=== PATIENT | female | born 1950 | race African-American/Black ===

== ENCOUNTER 2016-08-11 07:59 | Day surgery (SDC) | payer OTHER ==
[2016-08-10 15:02] VITALS: BMI 34.4
[2016-08-11] MEDS ORDERED: PROPOFOL 20 ML ONE ×2 (08:51→08:52)
[2016-08-11] MEDS ORDERED: LIDOCAINE HCL/PF 1% SDV 5ML VIAL ONE (08:51)
[2016-08-11 10:02] VITALS: TEMP 97.9
[2016-08-11 11:15] VITALS: BP 110/68; PULSE 78
--- NOTE | 2016-08-12 13:29 | PATH ---
Surgical Pathology Report Patient Name: [facility]. Rec. #: [id number] /Age/Gender: 1950 (Age: 66) / F Account: [id number] Location: [facility]-ENDOSCOPY Taken: 08/11/2016 Received: 08/11/2016 Reported: 08/12/2016 Physicians: Brad Figueroa D.O. Specimen(s) Received DISTAL TRANSVERSE COLON POLYP HOT SNARE Clinical History Screening Final Diagnosis COLON, DISTAL TRANSVERSE POLYP, POLYPECTOMY: HYPERPLASTIC POLYP. Electronically Signed Rashad Cerna M.D. Gross Description Received in formalin, labeled "polyp distal transverse colon" is a reese, irregular portion of soft tissue measuring 0.5 cm in greatest dimension. The specimen is submitted in toto in one cassette. 08/11/201608/11/2016
== END 2016-08-11 11:00 | disposition home or self-care (01) ==
LOC: JASU-ENDO 07:59
PROVIDERS: ATTEND Internal Medicine Gastroenterology
PROC: 0DBL8ZX Excision of Transverse Colon, Via Natural or Artificial Opening Endoscopic, Diagnostic (ICD-10-PCS; principal; 2016-08-11 09:00)
DX: Z12.11 Encounter for screening for malignant neoplasm of colon (principal); D12.3 Benign neoplasm of transverse colon; K57.30 Diverticulosis of large intestine without perforation or abscess without bleeding; K63.89 Other specified diseases of intestine; K64.8 Other hemorrhoids
CPT/HCPCS: 88305-TC

== ENCOUNTER 2024-02-02 12:09 | Inpatient (IN) | payer OTHER ==
[2024-02-02 12:20] VITALS: BMI 26.5
[2024-02-02] MEDS ORDERED: ACETAMINOPHEN 1000 MG/100 ML BAG IVPB ONE (13:20)
[2024-02-02] MEDS ORDERED: LACTATED RINGERS SOLUTION 1000 ML INFUS.BAG IV ONE (13:20)
[2024-02-02] MEDS ORDERED: ACETAMINOPHEN INJECTION 100 ML ONE (13:50)
[2024-02-02 14:25] LABS: BASO % 0.5 % (0-2.0); EOS % 0.2 % (0-4.5); HEMATOCRIT 23.3 % (32.4-45.2); HEMOGLOBIN 7.4 GM/dL (10.7-15.3); LYMPH % 6.8 % (8-40); MCH 22.7 pg (25.7-33.7); MCHC 31.6 g/dl (32.0-36.0); MEAN CELL VOLUME 71.8 fl (80-96); MEAN PLT VOLUME 8.1 fl (7.5-11.1); MONO % 2.9 % (3.8-10.2); NEUT % 89.6 % (42.8-82.8); PLATELET COUNT 342 10^3/uL (134-434); RBC 3.24 M/mm3 (3.60-5.2); RDW 21.2 % (11.6-15.6); WHITE BLOOD COUNT 5.1 K/mm3 (4.0-10.0)
[2024-02-02 14:36] LABS: INR 0.93 (0.83-1.09); PROTHROMBIN TIME (PATIENT) 10.5 SEC (9.7-13.0)
[2024-02-02 14:38] LABS: POTASSIUM 5.1 mmol/L (3.5-5.1)
[2024-02-02 14:39] LABS: ACTIVATED PTT 20.7 SECONDS (25.2-36.5)
[2024-02-02 14:41] LABS: ALBUMIN 4.1 g/dl (3.4-5.0); BLOOD UREA NITROGEN 30.8 mg/dL (7-18); MAGNESIUM 1.8 mg/dL (1.8-2.4)
[2024-02-02 14:44] LABS: CREATININE 1.2 mg/dL (0.55-1.3)
[2024-02-02 14:46] LABS: BILIRUBIN,TOTAL 1.4 mg/dL (0.2-1); TOT PROT 7.8 g/dl (6.4-8.2)
[2024-02-02 14:54] LABS: EPI CELLS >36 /uL (0-25.1); HYALINE CASTS 0 /uL (0-3.1); URINE APPEARANCE CLEAR; URINE BACTERIA 75 /uL (0-1359); URINE BILIRUBIN NEGATIVE (NEGATIVE); URINE COLOR YELLOW; URINE GLUCOSE (UA) NEGATIVE (NEGATIVE); URINE KETONE NEGATIVE (NEGATIVE); URINE LEUK ESTERASE 1+ (NEGATIVE); URINE NITRITE NEGATIVE (NEGATIVE); URINE PROTEIN NEGATIVE (NEGATIVE); URINE RBC 20 /uL (0-23.9); URINE WBC 11 /uL (0-25.8)
[2024-02-02 15:01] LABS: ANISOCYTOSIS 2+; MACROCYTOSIS 1+; OVALOCYTE 1+; TARGET CELLS 1+; TEAR DROP CELLS 1+
[2024-02-02 15:35] LABS: HIV INTERPRETATION NEGATIVE (NEGATIVE)
[2024-02-02] MEDS: SODIUM CHLORIDE 0.9% 1000 ML INFUS.BAG IV ONE (18:28)
[2024-02-02 18:31] LABS: HEMATOCRIT 20.3 % (32.4-45.2); MCH 22.2 pg (25.7-33.7); MCHC 31.3 g/dl (32.0-36.0); MEAN CELL VOLUME 70.9 fl (80-96); MEAN PLT VOLUME 7.1 fl (7.5-11.1); PLATELET COUNT 306 10^3/uL (134-434); RBC 2.86 M/mm3 (3.60-5.2); RDW 20.6 % (11.6-15.6); WHITE BLOOD COUNT 4.5 K/mm3 (4.0-10.0)
[2024-02-02 18:33] LABS: HEMOGLOBIN 6.4 GM/dL (10.7-15.3)
[2024-02-02] MEDS ORDERED: LABETALOL HCL 20 MG/4 ML VIAL ONE (20:15)
[2024-02-02] MEDS: LABETALOL HCL 5 MG/1 ML (100MG/20 ML VIAL) IVPUSH ONE (20:36)
[2024-02-02] MEDS: LOSARTAN 50MG/HCTZ 12.5MG 1 TAB PO ONE (20:45)
[2024-02-02] MEDS ORDERED: PANTOPRAZOLE SODIUM 40 MG VIAL ONE (21:00)
[2024-02-02] MEDS: PANTOPRAZOLE SODIUM 40 MG VIAL IVPUSH ONE (21:09)
[2024-02-03 08:10] LABS: BASO % 1.2 % (0-2.0); EOS % 2.1 % (0-4.5); HEMATOCRIT 24.9 % (32.4-45.2); HEMOGLOBIN 8.1 GM/dL (10.7-15.3); LYMPH % 35.1 % (8-40); MCH 24.3 pg (25.7-33.7); MCHC 32.4 g/dl (32.0-36.0); MEAN PLT VOLUME 8.1 fl (7.5-11.1); MONO % 5.7 % (3.8-10.2); NEUT % 55.9 % (42.8-82.8); PLATELET COUNT 262 10^3/uL (134-434); RBC 3.32 M/mm3 (3.60-5.2); RDW 21.3 % (11.6-15.6)
[2024-02-03 08:29] LABS: POTASSIUM 4.2 mmol/L (3.5-5.1)
[2024-02-03 08:34] LABS: BLOOD UREA NITROGEN 22.1 mg/dL (7-18); CALCIUM 9.2 mg/dL (8.5-10.1)
[2024-02-03] MEDS: FOLIC ACID 1 MG TABLET (FP) PO SCH (09:13)
[2024-02-03] MEDS: CHOLECALCIFEROL (VIT D3) 1,000 UNIT (25 MCG) TABLET PO SCH (09:13)
[2024-02-03] MEDS: ATORVASTATIN CA 10 MG TABLET (FP) PO SCH (21:36)
[2024-02-04 08:38] LABS: BASO % 0.9 % (0-2.0); EOS % 3.9 % (0-4.5); HEMATOCRIT 25.3 % (32.4-45.2); LYMPH % 29.8 % (8-40); MCH 23.9 pg (25.7-33.7); MCHC 31.6 g/dl (32.0-36.0); MEAN CELL VOLUME 75.7 fl (80-96); MONO % 7.8 % (3.8-10.2); NEUT % 57.6 % (42.8-82.8); PLATELET COUNT 230 10^3/uL (134-434); RBC 3.34 M/mm3 (3.60-5.2); RDW 22.3 % (11.6-15.6); RETICULOCYTES 0.82 % (0.5-1.5); WHITE BLOOD COUNT 4.3 K/mm3 (4.0-10.0)
[2024-02-04 08:51] LABS: CHLORIDE 111 mmol/L (98-107); SODIUM 142 mmol/L (136-145)
[2024-02-04 08:54] LABS: ALBUMIN 3.4 g/dl (3.4-5.0); ANION GAP 7 mmol/L (4-13); BLOOD UREA NITROGEN 15.8 mg/dL (7-18); CO2 24 mmol/L (21-32)
[2024-02-04 08:55] LABS: GLUCOSE,RANDOM 93 mg/dL (74-106)
[2024-02-04 08:57] LABS: IRON SERUM 47 ug/dL (50-175); SGOT/AST 43 U/L (15-37); SGPT/ALT 23 U/L (13-61)
[2024-02-04 08:58] LABS: BILIRUBIN,TOTAL 1.4 mg/dL (0.2-1); TOTAL IRON BINDING CAPACITY 246 ug/dL (250-450)
[2024-02-04 08:59] LABS: ALK PHOS 97 U/L (45-117); TOT PROT 6.6 g/dl (6.4-8.2)
[2024-02-04 09:13] LABS: LDH 436 U/L (84-246)
[2024-02-04] MEDS: PANTOPRAZOLE 40 MG TABLET PO SCH (09:18)
[2024-02-04] MEDS: PATIENT'S OWN MEDICATION (NON-FORMULARY) (Olmesartan/Hydrochlorothiazide [Benicar Hct 40-2 PO SCH (14:25)
[2024-02-04] MEDS: LIDOCAINE 5% TOPICAL PATCH TP SCH (15:12)
[2024-02-04 15:41] LABS: BILIRUBIN,DIRECT 0.4 mg/dL (0.0-0.2)
[2024-02-04] MEDS: ATORVASTATIN CA 10 MG TABLET (FP) PO SCH (21:36)
[2024-02-04] MEDS: LIDOCAINE PATCH REMOVAL MC SCH (21:37)
[2024-02-04] MEDS ORDERED: LIDOCAINE PATCH REMOVAL MC SCH (22:00)
[2024-02-05 08:55] LABS: BASO % 0.3 % (0-2.0); EOS % 4.1 % (0-4.5); HEMATOCRIT 22.5 % (32.4-45.2); HEMOGLOBIN 7.1 GM/dL (10.7-15.3); LYMPH % 22.8 % (8-40); MCH 23.5 pg (25.7-33.7); MCHC 31.7 g/dl (32.0-36.0); MEAN PLT VOLUME 8.2 fl (7.5-11.1); MONO % 6.3 % (3.8-10.2); NEUT % 66.5 % (42.8-82.8); PLATELET COUNT 207 10^3/uL (134-434); RBC 3.03 M/mm3 (3.60-5.2); RDW 22.9 % (11.6-15.6); WHITE BLOOD COUNT 4.6 K/mm3 (4.0-10.0)
[2024-02-05 09:11] LABS: POTASSIUM 3.7 mmol/L (3.5-5.1)
[2024-02-05 09:25] LABS: CALCIUM 8.8 mg/dL (8.5-10.1)
[2024-02-05 09:27] LABS: ALBUMIN 2.9 g/dl (3.4-5.0); BLOOD UREA NITROGEN 17.3 mg/dL (7-18)
[2024-02-05 09:29] LABS: CREATININE 0.8 mg/dL (0.55-1.3)
[2024-02-05 09:31] LABS: BILIRUBIN,TOTAL 1.1 mg/dL (0.2-1); TOT PROT 5.7 g/dl (6.4-8.2)
[2024-02-05] MEDS: PANTOPRAZOLE 40 MG TABLET PO SCH (10:17)
[2024-02-05] MEDS: ZINC SULFATE 220 MG CAPSULE (FP) PO SCH (10:17)
[2024-02-05] MEDS: CHOLECALCIFEROL (VIT D3) 1,000 UNIT (25 MCG) TABLET PO SCH (10:17)
[2024-02-05] MEDS: MULTIVITAMINS (DAILY MVI) TABLET (FP) PO SCH (10:17)
[2024-02-05] MEDS: ASCORBIC ACID 250 MG TABLET (FP) PO SCH (10:17)
[2024-02-05] MEDS: FOLIC ACID 1 MG TABLET (FP) PO SCH (10:18)
[2024-02-05] MEDS: LIDOCAINE 5% TOPICAL PATCH TP SCH (19:06)
[2024-02-06 09:24] LABS: BASO % 0.3 % (0-2.0); EOS % 2.5 % (0-4.5); HEMATOCRIT 23.1 % (32.4-45.2); HEMOGLOBIN 7.4 GM/dL (10.7-15.3); MCH 23.9 pg (25.7-33.7); MCHC 32.1 g/dl (32.0-36.0); MEAN CELL VOLUME 74.6 fl (80-96); MONO % 12.2 % (3.8-10.2); PLATELET COUNT 191 10^3/uL (134-434); RBC 3.09 M/mm3 (3.60-5.2); RDW 23.3 % (11.6-15.6); WHITE BLOOD COUNT 5.7 K/mm3 (4.0-10.0)
[2024-02-06 09:29] LABS: POTASSIUM 3.9 mmol/L (3.5-5.1)
[2024-02-06 09:33] LABS: ALBUMIN 2.9 g/dl (3.4-5.0); BLOOD UREA NITROGEN 18.7 mg/dL (7-18)
[2024-02-06 09:35] LABS: CREATININE 0.8 mg/dL (0.55-1.3)
[2024-02-06 09:37] LABS: BILIRUBIN,TOTAL 0.9 mg/dL (0.2-1); TOT PROT 5.9 g/dl (6.4-8.2)
[2024-02-06 10:20] LABS: ANISOCYTOSIS 2+; MACROCYTOSIS 0; OVALOCYTE 1+
[2024-02-07] MEDS: MELATONIN 5 MG TABLETS PO ONE (00:36)
[2024-02-07 08:20] LABS: HEMATOCRIT 23.7 % (32.4-45.2); HEMOGLOBIN 7.6 GM/dL (10.7-15.3); MCH 23.9 pg (25.7-33.7); MEAN CELL VOLUME 74.7 fl (80-96); MEAN PLT VOLUME 8.2 fl (7.5-11.1); PLATELET COUNT 211 10^3/uL (134-434); RBC 3.17 M/mm3 (3.60-5.2); RDW 22.6 % (11.6-15.6); WHITE BLOOD COUNT 7.3 K/mm3 (4.0-10.0)
[2024-02-07 08:40] LABS: POTASSIUM 3.8 mmol/L (3.5-5.1)
[2024-02-07 08:43] LABS: CALCIUM 8.7 mg/dL (8.5-10.1)
[2024-02-07 08:47] LABS: CREATININE 0.9 mg/dL (0.55-1.3)
[2024-02-07 08:48] LABS: BILIRUBIN,TOTAL 1.2 mg/dL (0.2-1)
[2024-02-07 08:49] LABS: TOT PROT 6.3 g/dl (6.4-8.2)
[2024-02-07 08:56] LABS: ANISOCYTOSIS 0; HELMET CELLS 0; HOWELL-JOLLY BODIES 0; MACROCYTOSIS 0; OVALOCYTE 0; ROULEAU 0; SICKELED CELLS 0; TARGET CELLS 0; TEAR DROP CELLS 0; TOXIC GRANULATION 0
[2024-02-07] MEDS: BISACODYL 5 MG TABLET.DR (FP) PO ONE (16:45)
[2024-02-07] MEDS: ACETAMINOPHEN 325 MG TABLET (FP) PO ONE (16:45)
[2024-02-07] MEDS: PEG 3350/NA SULF BICARB CL/KCL 4000 ML SOLN.RECON PO ONE (16:46)
[2024-02-08 10:16] LABS: HEMATOCRIT 27.4 % (32.4-45.2); MCH 24.5 pg (25.7-33.7); MCHC 32.7 g/dl (32.0-36.0); MEAN CELL VOLUME 74.8 fl (80-96); MEAN PLT VOLUME 8.4 fl (7.5-11.1); PLATELET COUNT 235 10^3/uL (134-434); RBC 3.67 M/mm3 (3.60-5.2); RDW 22.1 % (11.6-15.6)
[2024-02-08 10:28] LABS: INR 1.05 (0.83-1.09); PROTHROMBIN TIME (PATIENT) 11.9 SEC (9.7-13.0)
[2024-02-08 10:43] LABS: POTASSIUM 3.8 mmol/L (3.5-5.1)
[2024-02-08 10:47] LABS: BLOOD UREA NITROGEN 16.7 mg/dL (7-18); CALCIUM 8.7 mg/dL (8.5-10.1)
[2024-02-08 10:50] LABS: CREATININE 0.9 mg/dL (0.55-1.3)
[2024-02-08 10:52] LABS: TOT PROT 6.2 g/dl (6.4-8.2)
[2024-02-08 12:22] LABS: ANISOCYTOSIS 0; MACROCYTOSIS 0; OVALOCYTE 1+
[2024-02-08] MEDS: PANTOPRAZOLE 40 MG TABLET PO SCH (21:10)
[2024-02-09] MEDS: REMDESIVIR 200 MG in SODIUM CHLORIDE 250 ML IVPB ONE (17:46)
[2024-02-10] MEDS: ACETAMINOPHEN 325 MG TABLET (FP) PO ONE (00:12)
[2024-02-10 09:10] LABS: HEMATOCRIT 32.4 % (32.4-45.2); HEMOGLOBIN 9.9 GM/dL (10.7-15.3); MCH 23.4 pg (25.7-33.7); MCHC 30.6 g/dl (32.0-36.0); MEAN CELL VOLUME 76.4 fl (80-96); MEAN PLT VOLUME 8.3 fl (7.5-11.1); PLATELET COUNT 313 10^3/uL (134-434); RBC 4.24 M/mm3 (3.60-5.2); RDW 23.5 % (11.6-15.6); WHITE BLOOD COUNT 6.7 K/mm3 (4.0-10.0)
[2024-02-10 09:20] LABS: POTASSIUM 4.1 mmol/L (3.5-5.1)
[2024-02-10 09:33] LABS: BLOOD UREA NITROGEN 20.8 mg/dL (7-18); CALCIUM 8.9 mg/dL (8.5-10.1)
[2024-02-10 09:34] LABS: ALBUMIN 3.1 g/dl (3.4-5.0)
[2024-02-10 09:37] LABS: CREATININE 0.8 mg/dL (0.55-1.3)
[2024-02-10 09:38] LABS: BILIRUBIN,TOTAL 1.1 mg/dL (0.2-1); TOT PROT 6.5 g/dl (6.4-8.2)
[2024-02-10 12:06] LABS: ANISOCYTOSIS 3+; HELMET CELLS 0; MACROCYTOSIS 1+; OVALOCYTE 0; TARGET CELLS 1+; TEAR DROP CELLS 1+
[2024-02-10] MEDS: ACETAMINOPHEN 325 MG TABLET (FP) PO PRN (17:30)
[2024-02-11 16:02] VITALS: BP 118/78; PULSE 82; RESP 20; TEMP 99.5
== END 2024-02-11 17:04 | disposition home health service (06) | DRG 811 ==
LOC: JER 12:09 → JERBED 17:14 → J4W 21:35 → OBSVTOIN 02-03 10:00 → J5S 02-04 18:23
PROVIDERS: ADMIT Internal Medicine; ATTEND Internal Medicine
PROC: 30233N1 Transfusion of Nonautologous Red Blood Cells into Peripheral Vein, Percutaneous Approach (ICD-10-PCS; 2024-02-02)
PROC: 0DB68ZX Excision of Stomach, Via Natural or Artificial Opening Endoscopic, Diagnostic (ICD-10-PCS; 2024-02-08)
PROC: 0DJD8ZZ Inspection of Lower Intestinal Tract, Via Natural or Artificial Opening Endoscopic (ICD-10-PCS; 2024-02-08)
PROC: 0DB98ZX Excision of Duodenum, Via Natural or Artificial Opening Endoscopic, Diagnostic (ICD-10-PCS; principal; 2024-02-08 13:45)
PROC: XW033E5 Introduction of Remdesivir Anti-infective into Peripheral Vein, Percutaneous Approach, New Technology Group 5 (ICD-10-PCS; 2024-02-09)
DX: D50.9 Iron deficiency anemia, unspecified (principal); U07.1 COVID-19; M62.82 Rhabdomyolysis; I10 Essential (primary) hypertension; E78.5 Hyperlipidemia, unspecified; M10.9 Gout, unspecified; E11.9 Type 2 diabetes mellitus without complications; M06.9 Rheumatoid arthritis, unspecified; L89.152 Pressure ulcer of sacral region, stage 2; K25.9 Gastric ulcer, unspecified as acute or chronic, without hemorrhage or perforation; K44.9 Diaphragmatic hernia without obstruction or gangrene; K57.90 Diverticulosis of intestine, part unspecified, without perforation or abscess without bleeding; K64.8 Other hemorrhoids
CPT/HCPCS: 36415; 36430; 70450-TC; 71045-TC-FY; 72125-TC; 80048; 80053; 81003; 82248; 82272; 82550; 82553; 82607; 82728; 82747; 82962; 83540; 83550; 83615; 83735; 84443; 84484; 85014; 85025; 85027; 85045; 85610; 85730; 86803; 86850; 86870; 86880; 86900; 86901; 86902; 86922; 87086; 87389; 87635; 88305-TC; 88342-TC; 93005; 93010; 93306-TC; 97116-GP; 97162-GP; 99285-25; G0378; J0248; P9058